=== PATIENT | male | born 1975 | race Caucasian/White ===

== ENCOUNTER 2022-01-31 10:53 | Emergency (ER) | payer MEDICAID ==
[~2022-01-31] VITALS: Ht 172.7 cm; Wt 85.0 kg
[2022-01-31] MEDS ORDERED: KETOROLAC TROMETHAMINE 60 MG/2 ML VIAL IM ONE (11:45)
[2022-01-31] MEDS ORDERED: METHOCARBAMOL 500 MG TABLET PO ONE (11:45)
[2022-01-31] MEDS ORDERED: GABA-1181 PO (12:55)
[2022-01-31] MEDS ORDERED: IBUP200C5 PO (12:55)
[2022-01-31] MEDS ORDERED: METH-659 PO (13:00)
[2022-01-31 13:33] VITALS: BP 125/82
== END 2022-01-31 13:35 | disposition home or self-care (01) ==
LOC: EMS 10:56
DX: S16.1XXA Strain of muscle, fascia and tendon at neck level, initial encounter (principal); M62.838 Other muscle spasm; W01.0XXA Fall on same level from slipping, tripping and stumbling without subsequent striking against object, initial encounter; Y93.89 Activity, other specified; Y92.89 Other specified places as the place of occurrence of the external cause; Y99.8 Other external cause status
CPT/HCPCS: 99283; 72020; 72040; 96372; J1885